=== PATIENT | female | born 1985 | race Two or more races ===

== ENCOUNTER 2016-08-11 09:20 | Emergency (ER) | payer OTHER ==
[2016-08-11 09:25] VITALS: BP 138/78; PULSE 96; TEMP 98.2; BMI 21.9
[2016-08-11] MEDS ORDERED: IBUPROFEN 600 MG TABLET (FP) PO ONE ×2 (09:52→09:54)
--- NOTE | 2016-08-11 09:52 | PDOC ---
History of Present Illness - General Chief Complaint: Sore Throat Stated Complaint: THROAT PAIN Time Seen by Provider: 08/11/16 09:36 History Source: Patient Exam Limitations: No Limitations - History of Present Illness Initial Comments: 08/11/16 09:48 31 yr female with c/o sore throat for one week, chills and fever yesterday. Pt took nyquil last night . no medical history or allergies. no shortness of breath. Severity: mild Past History - Past Medical History Home Medications: Ambulatory Orders NK [No Known Home Medication] 08/11/16 Other medical history: denies - Family Disease History Comment:: 08/11/16 09:49 none - Psycho/Social/Smoking Cessation Hx Suicidal Ideation: No Smoking History: Never smoked Information on smoking cessation initiated: No Hx Alcohol Use: No Drug/Substance Use Hx: No Substance Use Type: None Review of Systems - Review of Systems Able to Perform ROS?: Yes Is the patient limited Chinese proficient: No Constitutional: Yes: See HPI HEENTM: Yes: See HPI Respiratory: Yes: See HPI, Cough (dry ) Cardiac (ROS): No: Symptoms Reported ABD/GI: No: Symptoms Reported : No: Symptoms Reported Musculoskeletal: No: Symptoms Reported Integumentary: No: Symptoms Reported *Physical Exam - Vital Signs Last Vital Signs Temp Pulse Resp BP Pulse Ox 98.2 F 96 H 18 138/78 99 08/11/16 09:23 08/11/16 09:23 08/11/16 09:23 08/11/16 09:23 08/11/16 09:23 - Physical Exam General Appearance: Yes: Nourished, Appropriately Dressed HEENT: positive: EOMI, ANI Neck: positive: Supple Respiratory/Chest: positive: Lungs Clear, Normal Breath Sounds Cardiovascular: positive: Regular Rhythm, Regular Rate Gastrointestinal/Abdominal: positive: Normal Bowel Sounds, Soft Musculoskeletal: positive: Normal Inspection Extremity: positive: Normal Capillary Refill, Normal Inspection, Normal Range of Motion Integumentary: positive: Normal Color, Dry, Warm Neurologic: positive: Fully Oriented, Alert, Normal Mood/Affect, Normal Response , Motor Strength 5/5 Medical Decision Making - Medical Decision Making 08/11/16 09:51 cc: sore throat will r/o strep 08/11/16 10:02 08/11/16 10:08/11/16 10:12 negative for strep *DC/Admit/Observation/Transfer Diagnosis at time of Disposition: Pharyngitis Qualifiers: Pharyngitis/tonsillitis etiology: unspecified etiology Qualified Code(s): J02.9 - Acute pharyngitis, unspecified - Discharge Dispostion Disposition: HOME Condition at time of disposition: Good - Patient Instructions Additional Instructions: negative strep throat you have a cold virus in your throat, start taking motrin every 6hrs for pain or fever throat lozengers lemon drops of your choice can help with sore throat gargle with salt water 4-5 times a day follow with your doctor if any worsening symptoms
== END 2016-08-11 10:18 | disposition home or self-care (01) ==
LOC: JERFT 09:20
DX: J02.9 Acute pharyngitis, unspecified (principal)
CPT/HCPCS: 87070; 87430; 99281-25